=== PATIENT | male | born 1990 | race Caucasian/White ===

== ENCOUNTER 2022-02-13 17:23 | Emergency (ER) | payer BC, SELFPAY ==
[2022-02-13 17:35] VITALS: BP 167/105; PULSE 101; RESP 20; TEMP 36.6; O2SAT 99; BMI 29.4
--- NOTE | 2022-02-13 17:57 | HMH.EDUTC ---
[facility] [place] Disposition Clinical Impression: Strep throat Disposition: Home, Self-Care Condition on Discharge: Good Instructions: DI for Strep Throat, Strep Throat Additional Instructions: *Monitor Temp, Over the counter Motrin or Tylenol as directed/as needed Tylenol every 4 hours and Motrin every 6 hours (as long as your family doctor has told you that you can take it) for fever or pain. and straight to ER if unable to lower temp less than 101.0 after medication given *Warm salt water gargles may help to soothe the throat *Throat Lozenges *Warm fluids like tea with honey may help to soothe the throat *Sleep elevated *Humidifier/Vaporizer *If you did not take Penicillin shot or was unable to, start taking antibiotic immediately and make sure that you take it for the FULL length of time although you should start to feel better in 24-48 hours *change toothbrush and toothpaste 24-48 hours after starting to take antibiotics so you do not reinfect yourself Monitor Temp. Tylenol and/or Ibuprofen as needed. ER if fever is no less than 101 despite alternating Tylenol and Ibuprofen * Encourage fluids, water, Gatorade, powerade, pedialyte if infant/toddler/or child *Cold fluids, popsicles and ice cream may feel good on his throat Follow up IMMEDIATELY for new or worsening symptoms or no Noticeable improvement over the next 48-72 hours. 911 for difficulty breathing or swallowing You were tested for today for COVID19 your test result should be back in the next 24-48 hours, you may check your results on the [facility] My Health Portal Make sure to take your Vitamins Vit. C Vit D and Zinc if you can take them Prescriptions: Azithromycin [Z-Addy 250mg Tab] 250 mg PO DIRECTED #6 tab Transmission Status: Pending to [id number] Referrals: Provider,Referral, MD [Primary Care Provider] - As needed Time of Disposition: 18:05 Medical Decision Making - Mark Anthony Inquiry Pt receiving controlled substance: No Mark Anthony was queried for this patient: No Vital Signs: 02/13/22 17:35 Temperature 97.9 F Temperature Source Oral Pulse Rate [Left Brachial] 101 H Respiratory Rate 20 Blood Pressure [Left Arm] 167/105 H Blood Pressure Mean [Left Arm] 125 Blood Pressure Source [Left Arm] Automatic Cuff Blood Pressure Position [Left Arm] Sitting 02 Sat by Pulse Oximetry 99 Oxygen Delivery Method Room Air - Lab Data Lab results reviewed: Yes: I reviewed the patient's lab results. Orders (Tests/Meds): ORDERS Category Date Time Status Covid-19 Nasal PCR ([facility]) Routine Lab 02/13/22 17:38 Received [facility] [place] HPI - General Stated complaint: covid test, poss sinus inf Time Seen by Provider: 02/13/22 17:58 Mode of Arrival: Ambulatory Source of Information: Patient Limitations: No Limitations Description of Symptoms (Recalled from Triage Doc. by RN): PATIENT C/O SINUS CONGESTION AND DRAINAGE SINCE SUNDAY HEENT Symptoms (Recalled from RN notes): Yes Resp Symptoms (Recalled from RN notes): No Skin Symptoms (Recalled from RN notes): No MS Symptoms (Recalled from RN notes): No Functional Status (Recalled from RN notes): WNL - History of Present Illness Provider Complaint: Patient states that he started on with sinus drainage in the back of his throat on and has continued to have scratchy throat States that he was around his boss who tested positive for COVID States that he is feeling much better today but work wanted him to get tested for COVID before he can return to work - Related Data Previous Rx's Medication Instructions Recorded Azithromycin [Z-Addy 250mg Tab] 250 mg PO DIRECTED #6 tab 02/13/22 Allergies Allergy/AdvReac Type Severity Reaction Status Date / Time No Known Allergies Allergy Verified 02/13/22 17:53 - Worker's Comp Is this a Worker's Comp case?: No [facility] History - Hepatitis A Screen Attestation statement:: This patient has been screened for Hepatitis A risk factors. I have
[2022-02-13 18:03] VITALS: BP 167/105; PULSE 101; RESP 20; TEMP 36.6; O2SAT 99
[2022-02-13 18:03] LABS: UTC Strep Screen (Rapid) Positive (Negative)
== END 2022-02-13 18:15 | disposition home or self-care (01) ==
PROVIDERS: Emergency Provider Nurse Practitioner
DX: J02.0 Streptococcal pharyngitis (principal); U07.1 COVID-19
CPT/HCPCS: 87880; 99212; C9803; G0463; U0003; U0005

== ENCOUNTER 2022-04-12 16:13 | Emergency (ER) | payer BC, SELFPAY ==
[2022-04-12 16:30] VITALS: BP 151/96; PULSE 114; RESP 20; TEMP 36.9; O2SAT 98; BMI 30.8
--- NOTE | 2022-04-12 16:56 | EXP.UTC ---
Discharge Plan Disposition Patient Disposition: Home, Self-Care Condition: Good Prescriptions Prescriptions: New methylprednisolone [Medrol (Addy)] 4 mg tablets,dose pack 4 mg PO DAILY Qty: 21 0RF amoxicillin 875 mg tablet 875 mg PO BID Qty: 20 0RF meclizine 25 mg tablet 25 mg PO TID PRN (Reason: dizziness) Qty: 15 0RF Referrals Follow up/Referrals: Flor Carrasco [Primary Care Provider] - See instructions Activity Restrictions/Add. Instructions Additional Instructions/Restrictions: Take medication as prescribed Move slowly when standing from sitting or laying position Follow up with your Family Doctor as scheduled Straight to ER if you have any life threatening symptoms Clinical Impressions Clinical Impression: Otitis media Stand Alone Forms Stand Alone Forms: Work/School Release Instructions Patient Instructions: Vertigo, DI for Labyrinthitis, Meclizine Discharge ED Provider[place] Lu Menard [facility] [place] General Stated complaint: NA, EAR ACHE AND PRESSURE IN EYES Mode of Arrival: Ambulatory Source of Information: Patient Limitations: No Limitations Time Seen by Provider: 04/12/22 16:35 Description of Symptoms (Recalled from Triage Doc. by RN): PATIENT C/O HEAD PRESSURE BEHIND EYES, EAR PRESSURE, AND DIZZINESS THAT STARTED Sunday AROUND 2129 HEENT Symptoms (Recalled from RN notes): Yes Resp Symptoms (Recalled from RN notes): No Skin Symptoms (Recalled from RN notes): No MS Symptoms (Recalled from RN notes): No Functional Status (Recalled from RN notes): WNL History of Present Illness Provider Complaint: Patient states that he has been having pain and pressure in his right ear, pain and pressure behind his eyes and started having some dizziness about 2 days ago when he would stand or move around States that he felt like the room was spinning around him States that it got a little better but got worse today so he came in to get checked Denies changes in vision States that dizziness is worse with movement Related Data Previous Rx's Medication Instructions Recorded amoxicillin 875 mg tablet 875 mg PO BID #20 tabs 04/12/22 meclizine 25 mg tablet 25 mg PO TID PRN dizziness #15 tabs 04/12/22 methylprednisolone 4 mg tablets in 4 mg PO DAILY #21 tabs 04/12/22 a dose pack (Medrol (Addy)) Allergies Allergy/AdvReac Type Severity Reaction Status Date / Time No Known Allergies Allergy Verified 02/13/22 17:53 Worker's Comp Is this a Worker's Comp case?: No [facility] Medical History (Updated 04/12/22 @ 17:04 by Lu Menard APRN) Kidney stone Surgical History (Updated 04/12/22 @ 16:44 by Shahla Maldonado, RN) History of hernia repair Social History (Updated 04/12/22 @ 16:44 by Shahla Maldonado RN) Smoking Status: Unknown if ever smoked alcohol intake: never current occupational status: other Travel in the last 8 weeks: None ROS Obtained: Yes All systems reviewed & no additional complaints except as documented and Yes Systems reviewed as appropriate & no additional complaints except as documented Constitutional Constitutional: Reports system reviewed and no additional complaints, except as documented, Reports as per HPI and Denies headache(s) Eyes Eyes: Reports system reviewed and no additional complaints, except as documented, Reports as per HPI, Denies blurry vision, Denies change in vision, Denies diplopia, Denies loss of vision, Denies eye pain and Denies photophobia ENT Ears, Nose, Mouth, and Throat: Reports system reviewed and no additional complaints, except as documented, Reports as per HPI, Reports dizziness, Reports otalgia, Denies headache(s) and Reports other (pressure like feeling behind his eyes) Respiratory Respiratory: Reports system reviewed and no additional complaints, except as documented and Reports as per HPI Gastrointestinal Gastrointestingal: Reports system reviewed and no additional complaints, except as documented and as per HPI Genitourin
[2022-04-12 17:14] VITALS: BP 151/96; PULSE 114; RESP 20; TEMP 36.9; O2SAT 98
== END 2022-04-12 17:16 | disposition home or self-care (01) ==
PROVIDERS: Emergency Provider Nurse Practitioner; PCP Nurse Practitioner Family
DX: H66.91 Otitis media, unspecified, right ear (principal)
CPT/HCPCS: 99212; G0463

== ENCOUNTER 2022-10-09 16:01 | Emergency (ER) | payer OTHER, SELFPAY ==
[2022-10-09 16:30] VITALS: BP 149/93; PULSE 105; RESP 20; TEMP 36.8; O2SAT 100; BMI 29.5
--- NOTE | 2022-10-09 17:02 | EXP.UTC ---
Discharge Plan Disposition Patient Disposition: Still a Patient Condition: Good Chief Complaint: PAIN Referrals Follow up/Referrals: Flor Carrasco [Primary Care Provider] - See instructions Discharge ED Provider: Corey Godinez [facility] [place] HPI General Chief complaint: PAIN Stated complaint: upset stomach, back pain, no known accident Time Seen by Provider: 10/09/22 17:03 History of Present Illness Provider Complaint: Patient states that he has been having a pressure like pain in her upper abdomen that feels like it goes through into his back States that started about 2 wks ago after he did a plank and he thought he may have pulled something but it has continued to get worse States that he hasnt been able to eat much for the last 4 day except for rice States that today he was feeling better and eat some food and it started up again States that it feels like a band around his upper stomach sides and back and feels uncomfortable and pain goes from upper abdomen through to his back and pain is worse in his back now Related Data Allergies Allergy/AdvReac Type Severity Reaction Status Date / Time No Known Allergies Allergy Verified 10/09/22 17:09 [facility] Disclaimer: The information contained in this section may have been updated after the patient was seen, as this information can be updated by other users. Medical History Kidney stone Surgical History History of hernia repair Family History (Updated 10/09/22 @ 19:10 by Janie Duncan RN) Other No significant family history Social History Smoking Status: Never smoker alcohol intake: never current occupational status: other Travel in the last 8 weeks: None ROS Obtained: Yes All systems reviewed & no additional complaints except as documented and Yes Systems reviewed as appropriate & no additional complaints except as documented Constitutional Constitutional: Reports system reviewed and no additional complaints, except as documented and Reports as per HPI ENT Ears, Nose, Mouth, and Throat: Reports system reviewed and no additional complaints, except as documented and Reports as per HPI Cardiovascular Cardiovascular: Reports system reviewed and no additional complaints, except as documented and Reports as per HPI Respiratory Respiratory: Reports system reviewed and no additional complaints, except as documented and Reports as per HPI Gastrointestinal Gastrointestingal: Reports system reviewed and no additional complaints, except as documented, as per HPI, abdominal pain (pressure like pain in upper abdomen) and nausea; Denies diarrhea Genitourinary Male Genitourinary: Reports system reviewed and no additional complaints, except as documented and Reports as per HPI Musculoskeletal Musculoskeletal: Reports system reviewed and no additional complaints, except as documented, Reports as per HPI and Reports back pain (pain in back that feels like comes through from abdomen) Physical Exam General General appearance: alert and in no apparent distress Respiratory Respiratory exam: Present normal lung sounds bilaterally; Absent respiratory distress or wheezes Cardiovascular Cardiovascular exam: Present regular rate, normal rhythm and normal heart sounds Abdominal Exam Abdominal exam: Present tenderness (reports mild tenderness in upper abdomen) Back Exam Back 1 view image: 1. reports pain/tenderness that feels like it comes from his abdomen into his back Neurological Exam Neurological exam: Present alert, oriented X3 and normal gait Medical Decision Making Mark Anthony Inquiry Pt receiving controlled substance: No Mark Anthony was queried for this patient: No Lab Data Result diagrams: 10/09/22 18:36 10/09/22 18:36 Medical Decision Narrative: Patient complaining of discomfort in his upper abdomen betsy
[2022-10-09 17:46] LABS: Apearance,Urine Clear (Clear); Bilirubin,Urine Negative (Negative); Blood, Urine Negative (Negative); Color,Urine Yellow (Yellow); Glucose,Urine (UA) Negative (Negative); Ketones,Urine Negative (Negative); PH,Urine 7.5 (5.0-8.5); Protein,Urine Negative (Negative); Specific Gravity, Urine 1.015 (1.005-1.030); UTC Leukocyte Esterase,Urine Negative (Negative); UTC Nitrate,Urine Negative (Negative); Urobilinogen,Urine 0.2 EU/dl (0.2)
[2022-10-09 18:52] LABS: Chloride 101 mmol/L (98-107); Sodium 140 mmol/L (136-145)
[2022-10-09 18:54] VITALS: BP 157/94; PULSE 97; RESP 17; TEMP 36.8; O2SAT 99; BMI 29.5
[2022-10-09 18:54] LABS: Blood Urea Nitrogen 10 mg/dl (9-20); Creatinine Clearance Estimated 130 mL/min (50-200); Estimated Glomerular Filt Rate 79 ml/min (>60); GFR (African American) 95 ML/MIN (>60)
[2022-10-09 18:55] LABS: Alanine Aminotransferase 43 U/L (12-78); Albumin Level 5.2 g/dl (3.5-5.0); Albumin/Globulin Ratio 1.5 (1.1-1.8); Alkaline Phosphatase 58 U/L (38-126); Aspartate Amino Transferase 46 U/L (17-59); Basophils # 0.1 K/mm3 (0-0.2); Basophils % 1.3 % (0.1-2.0); Bilirubin,Total 0.8 mg/dl (0.2-1.3); Calcium 8.9 mg/dl (8.4-10.2); Carbon Dioxide 29 mmol/L (22.0-30.0); Eosinophils # 0.1 K/mm3 (0.0-0.4); Eosinophils % 1.3 % (0.1-12.0); Globulin 3.5 g/dL (1.3-3.2); Glucose 117 mg/dl (74-100); Hematocrit 51.3 % (42.0-52.0); Hemoglobin 17.7 g/dL (14.1-18.0); Lipase 142 U/L (23-300); Lymphocytes # 1.4 K/mm3 (0.7-4.5); Lymphocytes % 16.5 % (10-50); Mean Corpuscular HGB Conc 34.5 g/dL (31.8-35.4); Mean Corpuscular Hemoglobin 29.9 pg (27.0-31.2); Mean Corpuscular Volume 86.7 fl (80-94); Mean Platelet Volume 8.6 fl (7.4-10.4); Monocytes # 0.3 K/mm3 (0.1-1.0); Monocytes % 3.7 % (1.7-9.3); Neutrophils # 6.5 K/mm3 (1.8-7.8); Neutrophils % 77.2 % (37.0-80.0); Platelet Count 247 K/mm3 (142-424); Red Blood Count 5.92 M/mm3 (4.60-6.20); Red Cell Distribution Width 13.5 % (11.5-17.5); Total Protein,Serum 8.7 g/dl (6.3-8.2); White Blood Count 8.4 K/mm3 (4.8-10.8)
[2022-10-09 19:30] VITALS: BP 141/87; PULSE 91; RESP 22; O2SAT 96
--- NOTE | 2022-10-09 20:01 | HMH.EDGENADL ---
Discharge Plan Disposition Patient Disposition: Home, Self-Care Condition: Good Referrals Follow up/Referrals: Flor Carrasco [Primary Care Provider] - See instructions Clinical Impressions Clinical Impression: Abdominal pain Discharge ED Provider: Corey Godinez General Adult HPI General Chief complaint: PAIN Stated complaint: upset stomach, back pain, no known accident Time Seen by Provider: 10/09/22 17:03 Mode of Arrival: Ambulatory Limitations: No Limitations Description of Symptoms (Recalled from ER Triage Doc. by RN): PT SENT FROM [facility] FROM FURTHER EVALUATION OF PRESSURE UNDER BILATERAL BREASTS FOR ABOUT 1.5 WEEKS AFTER WORKING OUT. DENIES PAIN, MID BACK PAIN THAT STARTED ABOUT 2 DAYS AFTER. NO CHANGE IN BOWEL OR BLADDER. History of Present Illness HPI narrative: 31yo M presents to the ER secondary to pain along his diaphragm. Also complains of mid back pain. States he has some right upper quadrant pain. This is been ongoing for over a week and a half. Symptoms started after working out, doing planks. Patient denies any fever, nausea, vomiting, diarrhea. No history of abdominal problems. Patient is significantly restricted his diet thinking that may not improve his symptoms. Patient reports his symptoms have dramatically improved over the last 3 to 4 days. Related Data Allergies Allergy/AdvReac Type Severity Reaction Status Date / Time No Known Allergies Allergy Verified 10/09/22 17:09 [facility] Disclaimer: The information contained in this section may have been updated after the patient was seen, as this information can be updated by other users. Medical History Kidney stone Surgical History History of hernia repair Family History Other No significant family history Social History Smoking Status: Never smoker alcohol intake: never current occupational status: other Travel in the last 8 weeks: None ROS Obtained: Yes Systems reviewed as appropriate & no additional complaints except as documented Physical Exam General General appearance: alert and in no apparent distress Head Head exam: atraumatic Eye Eye exam: Present normal appearance Chest Chest inspection: Present normal inspection Respiratory Respiratory exam: Present normal lung sounds bilaterally; Absent respiratory distress Cardiovascular Cardiovascular exam: Present regular rate and normal rhythm Abdominal Exam Abdominal exam: Present soft and normal bowel sounds; Absent distention, tenderness, guarding, rebound or rigidity Neurological Exam Neurological exam: Present alert, oriented X3 and CN II-XII intact Psychiatric Psychiatric exam: Present normal affect and normal mood Skin Skin exam: Present warm, dry and intact Medical Decision Making Medical Records Medical records reviewed: Yes I reviewed the patient's medical records. Mark Anthony Inquiry Pt receiving controlled substance: No Vital Signs: 10/09/22 16:30 10/09/22 18:54 10/09/22 19:30 Temperature 98.2 F 98.2 F Temperature Source Oral Oral Pulse Rate 91 H Pulse Rate [Right Radial] 105 H 97 H Respiratory Rate 20 17 22 Blood Pressure 141/87 H Blood Pressure [Right Arm] 149/93 H 157/94 H Blood Pressure Mean 108 Blood Pressure Mean [Right Arm] 111 115 Blood Pressure Source [Right Arm] Automatic Cuff Automatic Cuff Blood Pressure Position [Right Arm] Sitting Sitting 02 Sat by Pulse Oximetry 100 99 96 Oxygen Delivery Method Room Air Room Air Lab Data Lab results reviewed: Yes I reviewed the patient's lab results. Lab Results 10/09/22 17:35: Urine Color Yellow, Urine Appearance Clear, Urine pH 7.5, Ur Specific [place] 1.015, Urine Protein Negative, Urine Glucose (UA) Negative, Urine Ketones Negative, Urine Blood Negative, Urine Nitrate Nega
[2022-10-09 20:29] VITALS: BP 140/95; PULSE 88; RESP 18; TEMP 36.6; O2SAT 98
== END 2022-10-09 20:40 | disposition home or self-care (01) ==
LOC: UTC 16:07 → ER 18:53
PROVIDERS: Nurse Practitioner; Emergency Provider Family Medicine; PCP Nurse Practitioner Family
DX: R10.11 Right upper quadrant pain (principal); M54.6 Pain in thoracic spine
CPT/HCPCS: 80053; 81003; 83690; 85025; 87086; 99284; 99285

== ENCOUNTER 2022-12-10 14:59 | Emergency (ER) | payer OTHER, SELFPAY ==
[2022-12-10 15:10] VITALS: BP 153/93; PULSE 105; RESP 18; TEMP 37.1; O2SAT 95; BMI 30.1
--- NOTE | 2022-12-10 15:22 | EXP.UTC ---
Discharge Plan Disposition Patient Disposition: Home, Self-Care Condition: Good Prescriptions Prescriptions: New prednisone 10 mg tablet 10 mg PO BID 4 Days Qty: 8 0RF azithromycin [Zithromax] 250 mg tablet 250 mg PO UD DOSE PK Qty: 6 0RF Rx Instructions: Take two (2) tablets today, then one (1) tablet days #2 thru #5 Referrals Follow up/Referrals: Flor Carrasco [Primary Care Provider] - See instructions Activity Restrictions/Add. Instructions Additional Instructions/Restrictions: Drink plenty of fluids. Take tylenol or ibuprofen for pain or fever. Take the medications as directed. Follow up with your regular doctor. GO TO THE ER FOR ANY WORSENING SYMPTOMS Clinical Impressions Clinical Impression: Otitis media, Sinusitis Instructions Patient Instructions: Sinusitis, DI for Sinusitis Discharge ED Provider: Emmanuel Nicole [facility] General Stated complaint: Congestion,L Ear ache Mode of Arrival: Ambulatory Limitations: No Limitations Time Seen by Provider: 12/10/22 15:21 Description of Symptoms (Recalled from Triage Doc. by RN): left ear infection, and swollen gland HEENT Symptoms (Recalled from RN notes): Yes Resp Symptoms (Recalled from RN notes): No Skin Symptoms (Recalled from RN notes): No MS Symptoms (Recalled from RN notes): No Functional Status (Recalled from RN notes): n/a History of Present Illness Provider Complaint: He states that for the past 1 week he has had sinus congestion, left ear pain and an enlarged lymph node on the left side of his neck. Related Data Previous Rx's Medication Instructions Recorded azithromycin 250 mg tablet 250 mg PO UD DOSE PK #6 tabs 12/10/22 (Zithromax) prednisone 10 mg tablet 10 mg PO BID 4 days #8 tabs 12/10/22 Allergies Allergy/AdvReac Type Severity Reaction Status Date / Time No Known Allergies Allergy Verified 12/10/22 15:17 Worker's Comp Is this a Worker's Comp case?: No [facility] Disclaimer: The information contained in this section may have been updated after the patient was seen, as this information can be updated by other users. Medical History Kidney stone Surgical History History of hernia repair Family History Other No significant family history Social History Smoking Status: Never smoker alcohol intake: never current occupational status: other Travel in the last 8 weeks: None ROS Obtained: Yes All systems reviewed & no additional complaints except as documented Constitutional Constitutional: Reports chills and Reports fever(s) Eyes Eyes: Denies eye discharge ENT Ears, Nose, Mouth, and Throat: Reports as per HPI Cardiovascular Cardiovascular: Denies chest pain Respiratory Respiratory: Denies chest congestion and Reports cough Gastrointestinal Gastrointestingal: Reports nausea; Denies abdominal pain, constipation, cramping, diarrhea or vomiting Musculoskeletal Musculoskeletal: Denies arthralgias Integumentary/Breasts Skin/Breast: Denies rash Neurologic Neurologic: Denies paresthesias Physical Exam General General appearance: alert and in no apparent distress Head Head exam: atraumatic, normocephalic and normal inspection Eye Eye exam: Present normal appearance; Absent PERRL or EOMI ENT ENT exam: Present mucous membranes moist and normal external ear exam Expanded ENT Exam TM/Canal exam: Bilateral TM: erythema, bulging and effusion Nose exam: Absent sinus tenderness Nasal speculum exam: Bilateral: normal Mouth exam: Present normal external inspection and other; Absent drooling Teeth exam: Present normal inspection Throat exam: Present tonsillar erythema and tonsillomegaly Neck Neck exam: Present normal inspection, full ROM and trachea midline; Absent tenderness, meningismu
[2022-12-10 15:53] VITALS: BP 153/93; PULSE 105; RESP 18; TEMP 37.1; O2SAT 95
== END 2022-12-10 15:52 | disposition home or self-care (01) ==
PROVIDERS: Emergency Provider Nurse Practitioner Family; PCP Nurse Practitioner Family
DX: J01.90 Acute sinusitis, unspecified (principal); H66.90 Otitis media, unspecified, unspecified ear
CPT/HCPCS: 99212; 99214; G0463

== ENCOUNTER 2023-01-04 21:36 | Emergency (ER) | payer OTHER, SELFPAY ==
[2023-01-04 21:36] VITALS: BP 164/102; PULSE 87; RESP 17; TEMP 36.6; O2SAT 98; BMI 29.2
[2023-01-04 23:18] LABS: Basophils % 0.3 % (0.1-2.0); Eosinophils # 0.2 K/mm3 (0.0-0.4); Eosinophils % 2.2 % (0.1-12.0); Hematocrit 48.8 % (42.0-52.0); Hemoglobin 16.2 g/dL (14.1-18.0); Lymphocytes # 1.4 K/mm3 (0.7-4.5); Lymphocytes % 16.9 % (10-50); Mean Corpuscular HGB Conc 33.3 g/dL (31.8-35.4); Mean Corpuscular Hemoglobin 28.9 pg (27.0-31.2); Mean Corpuscular Volume 86.8 fl (80-94); Mean Platelet Volume 7.4 fl (7.4-10.4); Monocytes # 0.3 K/mm3 (0.1-1.0); Monocytes % 3.6 % (1.7-9.3); Neutrophils # 6.6 K/mm3 (1.8-7.8); Platelet Count 220 K/mm3 (142-424); Red Blood Count 5.62 M/mm3 (4.60-6.20); Red Cell Distribution Width 13.1 % (11.5-17.5); White Blood Count 8.5 K/mm3 (4.8-10.8)
[2023-01-04 23:25] LABS: Chloride 100 mmol/L (98-107); Sodium 142 mmol/L (136-145)
[2023-01-04 23:26] LABS: Potassium 3.9 mmoL/L (3.5-5.1)
[2023-01-04 23:28] LABS: Alanine Aminotransferase 39 U/L (12-78); Albumin Level 4.8 g/dl (3.5-5.0); Albumin/Globulin Ratio 1.4 (1.1-1.8); Alkaline Phosphatase 67 U/L (38-126); Anion Gap 14.9 mEq/L (5-15); Aspartate Amino Transferase 39 U/L (17-59); Bilirubin,Total 0.5 mg/dl (0.2-1.3); Blood Urea Nitrogen 11 mg/dl (9-20); Carbon Dioxide 31 mmol/L (22.0-30.0); Creatinine Clearance Estimated 131 mL/min (50-200); Estimated Glomerular Filt Rate 78 ml/min (>60); GFR (African American) 94 ML/MIN (>60); Globulin 3.5 g/dL (1.3-3.2); Total Protein,Serum 8.3 g/dl (6.3-8.2)
[2023-01-04 23:29] LABS: Calcium 9.3 mg/dl (8.4-10.2); Glucose 110 mg/dl (74-100)
[2023-01-04 23:41] LABS: Troponin I < 0.01 ng/ml (0.00-0.034)
--- NOTE | 2023-01-05 00:17 | HMH.EDGENADL ---
Discharge Plan Disposition Patient Disposition: Home, Self-Care Prescriptions Prescriptions: New cephalexin [cephalexin] 500 mg capsule 500 mg PO TID Qty: 21 0RF No Action prednisone 10 mg tablet 10 mg PO BID 4 Days Qty: 8 0RF azithromycin [Zithromax] 250 mg tablet 250 mg PO UD DOSE PK Qty: 6 0RF Rx Instructions: Take two (2) tablets today, then one (1) tablet days #2 thru #5 Referrals Follow up/Referrals: Flor Carrasco [Primary Care Provider] - See instructions Clinical Impressions Clinical Impression: Acute lymphadenitis Instructions Patient Instructions: DI for Lymphadenopathy Discharge ED Provider: Miguel Ángel (ED)Neymar General Adult HPI General Chief complaint: PAIN Stated complaint: elevated bp, left ear pain Time Seen by Provider: 01/05/23 00:17 Mode of Arrival: Ambulatory Source of Information: Patient and Medical Record Limitations: No Limitations Description of Symptoms (Recalled from ER Triage Doc. by RN): 32 M presents with issues with his blood pressure. He reports checking it earlier today and was 140/100 and his heart rate was in the 90's. Patient states he was treated for an ear infection a couple of weeks ago, but doesn't think it's better either. NAD on arrival. History of Present Illness HPI narrative: pt with recent treatment for ear infection and swollen and tender lt submandibular note - improved but still with sx - also has anxiety related to elevated bp Onset (ago): day(s) Location: neck Severity: moderate Associated symptoms: denies other symptoms Related Data Previous Rx's Medication Instructions Recorded azithromycin 250 mg tablet 250 mg PO UD DOSE PK #6 tabs 12/10/22 (Zithromax) prednisone 10 mg tablet 10 mg PO BID 4 days #8 tabs 12/10/22 cephalexin 500 mg capsule 500 mg PO TID #21 caps 01/05/23 Allergies Allergy/AdvReac Type Severity Reaction Status Date / Time No Known Allergies Allergy Verified 12/10/22 15:17 [facility] Disclaimer: The information contained in this section may have been updated after the patient was seen, as this information can be updated by other users. Medical History Kidney stone Surgical History History of hernia repair Family History Other No significant family history Social History Smoking Status: Never smoker alcohol intake: never current occupational status: other Travel in the last 8 weeks: None ROS Obtained: Yes All systems reviewed & no additional complaints except as documented Physical Exam General General appearance: alert Head Head exam: normocephalic Eye Eye exam: Present PERRL and EOMI ENT ENT exam: Present normal oropharynx, mucous membranes moist and TM's normal bilaterally Neck Neck exam: Present trachea midline and lymphadenopathy; Absent meningismus Respiratory Respiratory exam: Present normal lung sounds bilaterally; Absent respiratory distress Cardiovascular Cardiovascular exam: Present regular rate Abdominal Exam Abdominal exam: Present soft; Absent organomegaly Extremities Exam Extremities exam: Present full ROM Neurological Exam Neurological exam: Present alert, oriented X3 and CN II-XII intact; Absent motor sensory deficit Psychiatric Psychiatric exam: Present normal mood Skin Skin exam: Absent rash Lymphatic Lymphatic Findings: other (enlarged lt submandibular node ) Medical Decision Making Medical Records Medical records reviewed: Yes I reviewed the patient's medical records. Mark Anthony Inquiry Pt receiving controlled substance: No Vital Signs: 01/04/23 21:36 01/05/23 00:18 01/05/23 00:30 Temperature 98 F Temperature Source Oral Pulse Rate 109 H 96 H Pulse Rate [Left] 87 Respiratory Rate 17 Blood Pressure 150/90 H 162/83 H Blood Pr
[2023-01-05 00:18] VITALS: BP 150/90; PULSE 109; O2SAT 96
--- NOTE | 2023-01-05 00:20 | CT_ITS ---
PROCEDURE INFORMATION: Exam: CT Neck With Contrast Exam date and time: 01/05/2023 12:46 AM Age: 32 years old Clinical indication: Other: Lt ear ache; Additional info: Lt neck pain TECHNIQUE: Imaging protocol: Computed tomography of the neck with contrast. Radiation optimization: All CT scans at this facility use at least one of these dose optimization techniques: automated exposure control; mA and/or kV adjustment per patient size (includes targeted exams where dose is matched to clinical indication); or iterative reconstruction. Contrast material: ISOVUE; Contrast volume: 70 ml; Contrast route: IV; REPORTING DATA: Count of CT and Cardiac NM exams in prior 12 months: This patient has received 0 known CTs and 0 known cardiac nuclear medicine studies in the 12 months prior to the current study. COMPARISON: No relevant prior studies available. FINDINGS: Brain: Visualized intracranial contents demonstrate no acute abnormality. Mastoid air cells: Mastoid air cells are clear. Auditory system: Middle ear structures are normal. External auditory canal appears grossly normal bilaterally. Paranasal sinuses: Visualized paranasal sinuses are clear. Pharynx: Unremarkable. No significant tonsillar enlargement. Larynx: Unremarkable. Epiglottis is normal. Prevertebral and retropharyngeal spaces: Unremarkable. Salivary glands: Normal parotid and submandibular glands. Thyroid: Normal thyroid gland. Lymph nodes: No cervical adenopathy. Trachea: Visualized trachea is unremarkable. Lungs: Visualized lung apices are clear. Bones/joints: Mild reversal of the normal cervical lordosis. No significant disc herniation or spinal stenosis. No acute fracture. No bony erosion or destruction. Normal variant anatomy, with incomplete fusion of the posterior ring of C1. Soft tissues: Unremarkable. No significant soft tissue swelling. IMPRESSION: No acute findings.
[2023-01-05 00:30] VITALS: BP 162/83; PULSE 96; O2SAT 96
[2023-01-05 01:00] VITALS: BP 143/83; PULSE 96; O2SAT 98
[2023-01-05 01:30] VITALS: BP 139/78; PULSE 91; O2SAT 96
[2023-01-05 04:46] VITALS: BP 130/82; PULSE 89; RESP 19; TEMP 36.6
== END 2023-01-05 05:03 | disposition home or self-care (01) ==
PROVIDERS: Emergency Provider Emergency Medicine; PCP Nurse Practitioner Family
DX: H92.02 Otalgia, left ear (principal); R59.0 Localized enlarged lymph nodes; R03.0 Elevated blood-pressure reading, without diagnosis of hypertension
CPT/HCPCS: 70491; 80053; 84484; 85025; 96360; 99284; 99285; Q9967